=== PATIENT | female | born 1990 | race Caucasian/White ===

== ENCOUNTER 2017-06-29 19:29 | Emergency (ER) | payer OTHER ==
[2017-06-29 19:50] VITALS: RESP 18; TEMP 99.4; O2SAT 98
[2017-06-29] MEDS ORDERED: DIPHENHYDRAMINE 50 MG/ML SOL IM ONE (19:59)
[2017-06-29] MEDS ORDERED: SOLUMEDROL 125 MG/2 ML 125 MG/2 ML PDS IM ONE (19:59)
[2017-06-29] MEDS ORDERED: SOLUMEDROL 125 MG/2 ML 125 MG/2 ML PDS ONE (20:01)
[2017-06-29] MEDS ORDERED: DIPHENHYDRAMINE 50 MG/ML SOL ONE (20:01)
[2017-06-29 20:19] VITALS: BP 117/74; PULSE 92
== END 2017-06-29 20:18 | disposition home or self-care (01) | DRG 607 ==
LOC: ED 19:29
DX: L50.9 Urticaria, unspecified (principal)
CPT/HCPCS: 99283; J1200; J2930